=== PATIENT | male | born 1955 | race Caucasian/White ===

== ENCOUNTER 2024-05-25 08:08 | Day surgery (SDC) | payer MEDICARE ==
[~2024-05-25] VITALS: Ht 177.8 cm; Wt 61.7 kg
[~2024-05-25 08:08] MED LIST: PAROXETINE20 MG PO
[2024-05-25] MEDS ORDERED: LACTATED RINGER'S 1,000 ML IV ONE (08:11)
[2024-05-25] MEDS ORDERED: FAMOTIDINE 10MG/ML 2ML SDV IV ONE (08:11)
[2024-05-25 10:23] VITALS: BP 113/73
[2024-05-25] MEDS ORDERED: LIDOCAINE HCL 2% 2ML SDV IV ONE (13:02)
[2024-05-25] MEDS ORDERED: GLYCOPYRROLATE 0.2 MG/ML IV ONE ×2 (13:02)
[2024-05-25] MEDS ORDERED: PROPOFOL 500 MG/50 ML VIAL IV ONE (13:02)
== END 2024-05-25 10:33 | disposition home or self-care (01) ==
LOC: ENDO 08:08 → ORM 09:45 → ENDO 09:45
PROVIDERS: ATTEND Surgery
PROC: 0DJD8ZZ Inspection of Lower Intestinal Tract, Via Natural or Artificial Opening Endoscopic (ICD-10-PCS; principal; 2024-05-25)
PROC: 0DB98ZX Excision of Duodenum, Via Natural or Artificial Opening Endoscopic, Diagnostic (ICD-10-PCS; 2024-05-25)
PROC: 0DB48ZX Excision of Esophagogastric Junction, Via Natural or Artificial Opening Endoscopic, Diagnostic (ICD-10-PCS; 2024-05-25)
DX: K26.9 Duodenal ulcer, unspecified as acute or chronic, without hemorrhage or perforation (principal); K44.9 Diaphragmatic hernia without obstruction or gangrene; K64.8 Other hemorrhoids; F17.200 Nicotine dependence, unspecified, uncomplicated; Z85.038 Personal history of other malignant neoplasm of large intestine; Z80.0 Family history of malignant neoplasm of digestive organs; Z90.49 Acquired absence of other specified parts of digestive tract